=== PATIENT | female | born 1995 | race Hispanic/Latino ===

== ENCOUNTER 2021-03-04 15:13 | Emergency (ER) | payer OTHER ==
[~2021-03-04] VITALS: Ht 152.4 cm; Wt 68.0 kg
[2021-03-04 15:37] LABS: APPEARANCE,URINE Clear (CLEAR); BILIRUBIN,URINE Negative (NEGATIVE); COLOR,URINE Yellow (YELLOW); GLUCOSE, URINE (UA) Negative (NEGATIVE); KETONES,URINE 40 mg/dL (NEGATIVE); LEUKOCYTE ESTERASE ,URINE Small (NEGATIVE); NITRATE,URINE Negative (NEGATIVE); OCCULT BLOOD,URINE Small (NEGATIVE); PROTEIN,URINE Negative (NEGATIVE); UROBILINOGEN,URINE 0.2 mg/dL (0.2-1.0)
[2021-03-04 15:39] LABS: BASOPHILS % (AUTO) 0.2 % (0.0-5.0); EOSINOPHILS % (AUTO) 1.1 % (0.0-8.0); HEMATOCRIT 39.1 % (36-48); LYMPHOCYTES % (AUTO) 31.9 % (21.0-51.0); MEAN CORPUSCULAR HEMOGLOBIN 30.5 pg (27.0-33.0); MEAN CORPUSCULAR HGB CONC 33.5 g/dL (32.0-36.0); MEAN CORPUSCULAR VOLUME 91.1 fL (79-99); MONOCYTES % (AUTO) 5.7 % (3.0-13.0); NEUTROPHILS % (AUTO) 60.8 % (40.0-77.0); PLATELET COUNT (AUTO) 287 K/uL (130-400); RED BLOOD CELL COUNT(AUTO) 4.29 MIL/uL (4.00-5.50); RED CELL DISTRIBUTION WIDTH 12.4 % (11.0-15.5); WHITE BLOOD COUNT (AUTO) 10.6 K/uL (4.8-10.8)
[2021-03-04 15:43] LABS: BACTERIA,URINE Rare /HPF (None Seen); RBC,URINE 0-1 /HPF (0-1)
[2021-03-04 15:45] LABS: SQUAMOUS EPITHELIAL CELL,UR Few /HPF (0-2)
[2021-03-04 15:49] LABS: CREATININE 0.5 mg/dL (0.5-1.5); POTASSIUM 3.5 mmol/L (3.5-5.1)
[2021-03-04 16:16] LABS: ALBUMIN 3.8 g/dL (3.5-5.0); BILIRUBIN,TOTAL 0.7 mg/dL (0.2-1.0); TOTAL PROTEIN, SERUM 7.5 g/dL (6.0-8.3)
[2021-03-04] MEDS ORDERED: CEFTRIAXONE 1G VIAL IM STA (16:23)
[2021-03-04] MEDS ORDERED: PHENAZOPYRIDINE HCL 200 MG TABLET PO STA (16:23)
[2021-03-04 16:25] VITALS: BP 105/67
[2021-03-04] MEDS ORDERED: PREN-61 PO (16:27)
[2021-03-04] MEDS ORDERED: CEPH500B PO (16:27)
[2021-03-04] MEDS ORDERED: PHEN-847 PO (16:27)
[2021-03-04] MEDS ORDERED: LIDOCAINE HCL-MPF 1% 2ML VIAL ONE (16:28)
== END 2021-03-04 16:40 | disposition home or self-care (01) ==
LOC: EDH 15:27
DX: O23.41 Unspecified infection of urinary tract in pregnancy, first trimester (principal); Z3A.01 Less than 8 weeks gestation of pregnancy
CPT/HCPCS: 36415; 76801; 80053; 81001; 84702; 85025; 96372; 99284; J0696; J3490

== ENCOUNTER 2021-03-20 11:06 | Emergency (ER) | payer OTHER ==
[~2021-03-20] VITALS: Ht 152.4 cm; Wt 68.0 kg
[~2021-03-20 11:06] MED LIST: CEPH500B PO; PHEN-847 PO; PREN-61 PO
[2021-03-20 11:07] VITALS: BP 104/58
[2021-03-20] MEDS ORDERED: MUPI22OI2 TP (12:48)
[2021-03-20] MEDS ORDERED: CEPH500B PO (12:48)
[2021-03-20 13:05] VITALS: BP 102/64
== END 2021-03-20 13:06 | disposition home or self-care (01) ==
LOC: EDH 11:06
DX: O9A.211 Injury, poisoning and certain other consequences of external causes complicating pregnancy, first trimester (principal); S70.372A Other superficial bite of left thigh, initial encounter; Z3A.01 Less than 8 weeks gestation of pregnancy; Z90.49 Acquired absence of other specified parts of digestive tract; Z88.4 Allergy status to anesthetic agent; Z79.899 Other long term (current) drug therapy; W54.0XXA Bitten by dog, initial encounter; Y93.89 Activity, other specified; Y92.039 Unspecified place in apartment as the place of occurrence of the external cause; Y99.0 Civilian activity done for income or pay